=== PATIENT | female | born 1990 | race Caucasian/White ===

== ENCOUNTER 2021-09-25 11:15 | Emergency (ER) | payer MEDICAID ==
[~2021-09-25] VITALS: Ht 162.6 cm; Wt 87.5 kg
[2021-09-25 11:29] VITALS: BP 122/77
--- NOTE | 2021-09-25 11:36 | NUR ---
PT AMBULATED TO ER BED 8 WITH A STEADY GAIT.
--- NOTE | 2021-09-25 11:45 | NUR ---
31 Y/O FEMALE C/O ABDOMIAL PAIN 8/10 DESCRCIBES CRAMPING AND RADIATES TO SUPRAPUBIC REGION X3DAYS. DENIES RX PRIOR TO ARRIVAL. PT STATES N/V WORST WITH COFFEE INTAKE. PT DENIES FEVER/CHILLS. ABD IS SOFT, ROUND, NON-TENDER TO PALPATION, BOWEL SOUNDS ACTIVE X4. PMH: HYPOTHYROIDISM NKA
--- NOTE | 2021-09-25 12:36 | NUR ---
LAB AT BEDSIDE FOR BLOOD DRAW
--- NOTE | 2021-09-25 12:54 | NUR ---
US AT BEDSIDE
[2021-09-25 13:00] LABS: BASOPHILS % (AUTO) 0.2 % (0.0-2.0); EOSINOPHILS # (AUTO) 0.1 K/uL (0-0.4); EOSINOPHILS % (AUTO) 0.8 % (0.0-4.0); HEMATOCRIT 38.8 % (36-48); HEMOGLOBIN 13.2 g/dL (12.0-16.0); LYMPHOCYTES # (AUTO) 2.1 K/uL (2.5-16.5); LYMPHOCYTES % (AUTO) 26.1 % (20.5-51.1); MEAN CORPUSCULAR HEMOGLOBIN 30 pg (27-31); MEAN CORPUSCULAR HGB CONC 34 g/dL (33-37); MEAN CORPUSCULAR VOLUME 89.3 fL (80-94); MONOCYTES # (AUTO) 0.4 K/uL (0.8-1.0); MONOCYTES % (AUTO) 5.3 % (1.7-9.3); NEUTROPHILS # (AUTO) 5.3 K/uL (1.8-7.7); NEUTROPHILS % (AUTO) 67.6 % (42.2-75.2); PLATELET COUNT (AUTO) 225 K/uL (140-450); RED BLOOD CELL COUNT(AUTO) 4.35 MIL/uL (4.20-5.40); WHITE BLOOD COUNT (AUTO) 7.9 K/uL (4.8-10.8)
[2021-09-25 13:23] LABS: ALBUMIN 3.1 g/dL (3.4-5.0); ANION GAP 12.4 (8-16); CARBON DIOXIDE 25.6 mmol/L (21-32); CREATININE 0.6 mg/dL (0.6-1.3); TOTAL BILIRUBIN 0.2 mg/dL (0.0-1.0)
--- NOTE | 2021-09-25 13:24 | NUR ---
PT SLEEPING, VISIBLE EQUAL RISE AND FALL OF CHEST, VSS, WILL CONTINUE TO MONITOR.
[2021-09-25 14:29] LABS: APPEARANCE,URINE CLEAR (CLEAR); BILIRUBIN,URINE NEGATIVE (NEGATIVE); BLOOD, URINE NEGATIVE (NEGATIVE); COLOR,URINE YELLOW (YELLOW); LEUKOCYTE ESTERASE ,URINE NEGATIVE (NEGATIVE); NITRITE, URINE NEGATIVE (NEGATIVE); PH,URINE 6.5 (5.0-9.0); UGLUCOSE NEGATIVE (NEGATIVE)
[2021-09-25 14:54] VITALS: BP 119/73
--- NOTE | 2021-09-25 14:54 | NUR ---
Patient discharged with v/s stable. Written and verbal after care instructions given FOR FIRST TRIMESTER OF and explained. Patient verbalized understanding. Ambulatory with steady gait. All questions addressed prior to discharge. Advised to follow up with PMD.
== END 2021-09-25 14:55 | disposition home or self-care (01) ==
LOC: MED 11:15
DX: O26.891 Other specified pregnancy related conditions, first trimester (principal); R10.2 Pelvic and perineal pain; R10.9 Unspecified abdominal pain; M54.9 Dorsalgia, unspecified; E03.9 Hypothyroidism, unspecified; Z3A.13 13 weeks gestation of pregnancy
CPT/HCPCS: 36415; 76801; 80053; 81003; 81025; 84702; 85025; 86886; 86900; 86901; 99284; Q0092